=== PATIENT | male | born 1980 | race Two or more races ===

== ENCOUNTER → 2021-04-11 10:05 | Outpatient (BNVA) | payer MEDICAID, SELFPAY | PROVIDERS: PCP Internal Medicine; Referring Provider Internal Medicine; Visit Provider Surgery | DX: L82.1 Other seborrheic keratosis (principal) | CPT/HCPCS: 99202 ==

== ENCOUNTER 2021-06-22 08:40 | Outpatient (REF) | payer MEDICAID, SELFPAY ==
[2021-06-22 08:47] VITALS: BP 122/79; PULSE 87; RESP 16; TEMP 37.4; O2SAT 100
[2021-06-22 08:48] VITALS: BMI 24.2
--- NOTE | 2021-06-22 10:05 | P.OP_ITS ---
Operative Note Operative Note Date of Service: 06/22/21 Narrative: Preoperative diagnosis: Skin lesion left lower quadrant abdomen Postoperative diagnosis: Same Procedure: Excision of skin lesion left lower quadrant abdomen Surgeon: Ty Ma MD Receiving Distribution Station Operator: No physician Anesthesia: Local Indications for procedure: 41-year-old male patient with a raised black skin lesion in the left lower quadrant which is irritated by his clothing which rubs against the lesion and causes bleeding on occasion. Operative findings: 1 cm raised black lesion in the left lower quadrant, path pending Specimen: Skin lesion left lower quadrant abdomen Estimated blood loss: 2 cc Complications: None Procedure details: Patient was brought to the minor surgery suite placed in a supine position. Surgical consent was confirmed and the site of surgery confirmed by the patient in the left lower quadrant. Skin was prepped with Betadine and draped in a sterile fashion. Local was infiltrated around the lesion an elliptical incision made to excise the lesion completely. The lesion measures approximately 1 cm in diameter. Lesion was passed off the table and sent to pathology for further examination. After assuring adequate hemostasis, the skin was closed using interrupted 4-0 nylon sutures. Sterile dressings consisting of 2 x 2 gauze and Tegaderm were then applied. The patient tolerated the procedure well. He was discharged to home in stable condition.
== END 2021-06-22 08:41 | disposition home or self-care (01) ==
LOC: HO.MS 08:40
PROVIDERS: PCP Internal Medicine; Visit Provider Surgery
PROC: (CPT 11401; principal; 2021-06-22 09:30)
DX: L43.8 Other lichen planus (principal)
CPT/HCPCS: 11401; 88305

== ENCOUNTER → 2021-06-30 10:54 | Outpatient (BNVA) | payer MEDICAID, SELFPAY | PROVIDERS: PCP Internal Medicine; Referring Provider Internal Medicine; Visit Provider Surgery | DX: Z48.817 Encounter for surgical aftercare following surgery on the skin and subcutaneous tissue (principal); Z87.2 Personal history of diseases of the skin and subcutaneous tissue | CPT/HCPCS: 99212 ==

== ENCOUNTER 2022-01-17 10:43 | Outpatient (REF) | payer MEDICAID, SELFPAY ==
[2022-01-17 13:53] LABS: MANUAL DIFF FLAG NO
[2022-01-17 13:58] LABS: Basophils Absolute Auto 0.1 X10*3/uL (0.0-0.2); Eosinophils Absolute Auto 0.1 X10*3/uL (0.0-0.4); Eosinophils Percent Auto 1.7 % (0-4); Hematocrit 43.1 % (42.0-52.0); Hemoglobin 14.4 g/dl (14.0-18.0); Imm Gran Abs Auto 0.02 X10*3/uL (0.00-0.03); Imm Gran Pct Auto 0.2 % (0.0-0.4); Lymphocytes Absolute Auto 2.6 X10*3/uL (1.2-4.9); Lymphocytes Percent Auto 31.9 % (20-40); Mean Corpuscular HGB Conc 33.4 g/dl (31.0-36.0); Mean Corpuscular Hemoglobin 29.3 pg (27.0-33.0); Mean Corpuscular Volume 87.6 fL (80.0-98.0); Mean Platelet Volume 11.8 fL (9.4-12.4); Monocytes Absolute Auto 0.7 X10*3/uL (0.1-1.2); Monocytes Percent Auto 8.1 % (2-11); Neutrophils Absolute Auto 4.6 x10*3/uL (2.0-8.3); Neutrophils Percent Auto 57.1 % (45-73); Platelet Count 293 X10*3/uL (160-400); Red Blood Count 4.92 X10*6/uL (4.60-5.80); Red Cell Distribution Width 13.3 % (11.0-16.0)
[2022-01-17 14:19] LABS: Alanine Aminotransferase 17 U/L (0-40); Albumin Level 4.5 g/dL (3.5-5.0); Alkaline Phosphatase 45 U/L (39-117); Anion Gap 14 (12-20); Aspartate Amino Transferase 18 U/L (5-37); Bilirubin Total 0.3 mg/dL (0.0-1.0); Blood Urea Nitrogen 12 mg/dL (9-16); Calcium 9.9 mg/dL (8.4-10.2); Carbon Dioxide 28 mmol/L (22-29); Chloride 103 mmol/L (96-108); Cholesterol 248 mg/dL; Estimated Glomerular Filt Rate > 60; Glucose Fasting 84 mg/dL (60-99); HDL Cholesterol 48 mg/dL; LDL Cholesterol Calculated 184 mg/dl; Sodium 140 mmol/L (135-145); Total Protein 7.4 g/dL (6.5-8.0); Triglycerides 84 mg/dL
[2022-01-17 14:34] LABS: Syphilis Screen Nonreactive (Nonreactive)
[2022-01-17 15:28] LABS: CT PCR NOT DETECTED (Not Detect.); NG PCR NOT DETECTED (Not Detect.)
[2022-01-18 06:30] LABS: HIV AB/AG Nonreactive (Nonreactive); HIV Num 1 0.09 S/CO (0.00-0.99)
== END 2022-01-17 10:44 | disposition home or self-care (01) ==
LOC: HO.10HDL 10:43
PROVIDERS: Visit Provider Internal Medicine
DX: E78.00 Pure hypercholesterolemia, unspecified (principal); R10.2 Pelvic and perineal pain; Z11.3 Encounter for screening for infections with a predominantly sexual mode of transmission
CPT/HCPCS: 80053; 80061; 85025; 86780; 87389; 87491; 87591

== ENCOUNTER 2023-05-09 09:37 | Outpatient (REF) | payer MEDICAID, SELFPAY ==
[2023-05-09 10:54] LABS: MANUAL DIFF FLAG NO
[2023-05-09 11:06] LABS: Basophils Absolute Auto 0.1 X10*3/uL (0.0-0.2); Basophils Percent Auto 1.1 % (0-2); Eosinophils Absolute Auto 0.2 X10*3/uL (0.0-0.4); Eosinophils Percent Auto 2.9 % (0-4); Hematocrit 41.4 % (42.0-52.0); Hemoglobin 13.7 g/dl (14.0-18.0); Imm Gran Abs Auto 0.02 X10*3/uL (0.00-0.03); Imm Gran Pct Auto 0.2 % (0.0-0.4); Lymphocytes Absolute Auto 2.8 X10*3/uL (1.2-4.9); Lymphocytes Percent Auto 33.4 % (20-40); Mean Corpuscular HGB Conc 33.1 g/dl (31.0-36.0); Mean Corpuscular Hemoglobin 28.8 pg (27.0-33.0); Mean Platelet Volume 11.3 fL (9.4-12.4); Monocytes Absolute Auto 0.6 X10*3/uL (0.1-1.2); Monocytes Percent Auto 7.6 % (2-11); Neutrophils Absolute Auto 4.5 x10*3/uL (2.0-8.3); Neutrophils Percent Auto 54.8 % (45-73); Platelet Count 264 X10*3/uL (160-400); Red Blood Count 4.76 X10*6/uL (4.60-5.80); Red Cell Distribution Width 13.8 % (11.0-16.0); White Blood Count 8.3 X10*3/uL (4.8-10.8)
[2023-05-09 11:29] LABS: Alanine Aminotransferase 21 U/L (0-40); Albumin Level 4.2 g/dL (3.5-5.0); Alkaline Phosphatase 45 U/L (39-117); Anion Gap 11 (12-20); Aspartate Amino Transferase 18 U/L (5-37); Bilirubin Total 0.2 mg/dL (0.0-1.0); Blood Urea Nitrogen 15 mg/dL (9-16); Calcium 9.3 mg/dL (8.4-10.2); Carbon Dioxide 27 mmol/L (22-29); Chloride 106 mmol/L (96-108); Cholesterol 216 mg/dL (<200); Estimated Glomerular Filt Rate > 60; Glucose Random 102 mg/dL (60-115); HDL Cholesterol 49 mg/dL (>40); LDL Cholesterol Calculated 155 mg/dL (<100); Potassium 4.3 mmol/L (3.3-5.1); Sodium 140 mmol/L (135-145); Total Protein 7.3 g/dL (6.5-8.0); Triglycerides 62 mg/dL (<150)
== END 2023-05-09 09:38 | disposition home or self-care (01) ==
LOC: HO.10HDL 09:37
PROVIDERS: Visit Provider Internal Medicine
DX: Z00.00 Encounter for general adult medical examination without abnormal findings (principal); E78.00 Pure hypercholesterolemia, unspecified; F12.90 Cannabis use, unspecified, uncomplicated; F17.201 Nicotine dependence, unspecified, in remission
CPT/HCPCS: 36415; 80053; 80061; 85025

== ENCOUNTER 2024-02-24 08:58 | Outpatient (REF) | payer MEDICAID, SELFPAY ==
[2024-02-24 12:00] LABS: Alanine Aminotransferase 29 U/L (0-40); Albumin Level 4.3 g/dL (3.5-5.0); Alkaline Phosphatase 42 U/L (39-117); Anion Gap 10 (12-20); Aspartate Amino Transferase 22 U/L (5-37); Bilirubin Total 0.3 mg/dL (0.0-1.0); Blood Urea Nitrogen 13 mg/dL (9-16); Calcium 9.2 mg/dL (8.4-10.2); Carbon Dioxide 28 mmol/L (22-29); Chloride 105 mmol/L (96-108); Cholesterol 256 mg/dL (<200); Estimated Glomerular Filt Rate > 60; Glucose Random 100 mg/dL (60-115); HDL Cholesterol 53 mg/dL (>40); LDL Cholesterol Calculated 188 mg/dL (<100); Potassium 4.5 mmol/L (3.3-5.1); Sodium 138 mmol/L (135-145); Total Protein 7.3 g/dL (6.5-8.0); Triglycerides 77 mg/dL (<150)
== END 2024-02-24 08:59 | disposition home or self-care (01) ==
LOC: HO.10HDL 08:58
PROVIDERS: Visit Provider Internal Medicine
DX: Z00.00 Encounter for general adult medical examination without abnormal findings (principal); E78.00 Pure hypercholesterolemia, unspecified; F12.10 Cannabis abuse, uncomplicated; G60.8 Other hereditary and idiopathic neuropathies
CPT/HCPCS: 36415; 80053; 80061

== ENCOUNTER 2024-08-24 09:48 | Outpatient (REF) | payer MEDICAID, SELFPAY ==
--- OUTSIDE RECORDS SUMMARY | 2024-08-24 10:45 | XMS_ITS ---
Author Organization [facility] Address [address] [place] [phone] Care Team Providers Care Full Time Staff Interpreter Name Role Phone Sonya Schumacher Primary Care Provider Unavailab hernan Hickey Jr, Efrain Montalvo REASON FOR VISIT Patient presents today for a colon screening Encounters Encounter Location Date Provider Diagnosis [facility] [address] [place] [phone] 06/11/2024 Efrain Hickey Jr Plan Of Treatment No Information Progress Notes * CLARIBEL CLEMONSODOB:[birth year] (44 yo M)Acc No.[id number]:06/11/2024 Progress Notes Patient:?JOSUÉ CLEMONS Provider:?Efrain Hickey MD :1980???Age:44 Y???Sex:Male Hernandez e:06/11/2024 Address:[address] [place], [place] [id number] Pcp:Sonya Schumacher Subjective: * Chief Complaints: * ???1. Patient presents today for a colon screening. * Medical History:? Objective: * Vitals:? Assessment: Plan: * Treatment: * * The named appointment provid er may or may not be the originator of this progress note, and it is not deemed complete until electronically signed by the appointment provider. Sign off status: Pending * Provider:?Efrain Hickey MD Date:?0 06/11/2024 Generated for Sylvia koch/Armando/eTransmitting on:?08/24/2024 10:44 AM EDT
[2024-08-24 13:52] LABS: Alanine Aminotransferase 31 U/L (0-40); Albumin Level 4.5 g/dL (3.5-5.0); Alkaline Phosphatase 47 U/L (39-117); Anion Gap 13 (12-20); Aspartate Amino Transferase 23 U/L (5-37); Bilirubin Total 0.3 mg/dL (0.0-1.0); Blood Urea Nitrogen 14 mg/dL (9-16); Calcium 9.6 mg/dL (8.4-10.2); Carbon Dioxide 27 mmol/L (22-29); Chloride 105 mmol/L (96-108); Cholesterol 261 mg/dL (<200); Estimated Glomerular Filt Rate > 60; Glucose Random 102 mg/dL (60-115); HDL Cholesterol 54 mg/dL (>40); LDL Cholesterol Calculated 187 mg/dL (<100); Potassium 4.1 mmol/L (3.3-5.1); Sodium 141 mmol/L (135-145); Total Protein 7.4 g/dL (6.5-8.0); Triglycerides 104 mg/dL (<150)
== END 2024-08-24 09:49 | disposition home or self-care (01) ==
LOC: HO.10HDL 09:48
PROVIDERS: Visit Provider Internal Medicine
DX: E78.00 Pure hypercholesterolemia, unspecified (principal); G60.8 Other hereditary and idiopathic neuropathies; Z68.24 Body mass index [BMI] 24.0-24.9, adult
CPT/HCPCS: 36415; 80053; 80061

== ENCOUNTER 2024-10-27 10:22 | Outpatient (REF) | payer MEDICAID, SELFPAY ==
--- OUTSIDE RECORDS SUMMARY | 2024-06-11 10:35 | XMS_ITS ---
Author Organization [facility] Address [address] [place] [phone] Care Team Providers Care Deck Mechanic Name Role Phone Sonya Schumacher Primary Care Provider Unavailab hernan Hickey Jr, Efrain Unavailable [phone] REASON FOR VISIT Patient presents today for a colon screening Encounters Encounter Location Date Provider Diagnosis [facility] [address] [place] [phone] 06/11/2024 Efrain Hickey Jr Plan Of Treatment No Information Progress Notes * CLARIBEL CLEMONSODOB:[birth year] (44 yo M)Acc No.[id number]:06/11/2024 Progress Notes Patient: JOSUÉ ROBISON Provider: Amos Hickey MD :1980 A ge:44 Y S ex:Male Date:06/11/2024 Address:[address] [place], [place] [id number] Pcp:Sonya Schumacher Subjective: * Chief Complaints: * 1 . Patient presents today for a colon screening. * Medical History: Objective: * Vitals: Assessment: Plan: * Treatment: * * The named appointment provid er may or may not be the originator of this progress note, and it is not deemed complete until electronically signed by the appointment provider. Sign off status: Pending * Provider: Amos Hickey MD Date: 0 06/11/2024 Generated for Sylvia koch/Armando/Adelinaitting on: 0 10/27/2024 11:40 AM EDT
[2024-10-27 11:09] LABS: Alanine Aminotransferase 25 U/L (0-40); Albumin Level 4.6 g/dL (3.5-5.0); Alkaline Phosphatase 44 U/L (39-117); Anion Gap 14 (12-20); Aspartate Amino Transferase 24 U/L (5-37); Blood Urea Nitrogen 15 mg/dL (9-16); Calcium 9.6 mg/dL (8.4-10.2); Carbon Dioxide 27 mmol/L (22-29); Chloride 103 mmol/L (96-108); Cholesterol 217 mg/dL (<200); Estimated Glomerular Filt Rate > 60; HDL Cholesterol 49 mg/dL (>40); Potassium 4.2 mmol/L (3.3-5.1); Sodium 140 mmol/L (135-145); Total Protein 7.3 g/dL (6.5-8.0); Triglycerides 53 mg/dL (<150)
--- OUTSIDE RECORDS SUMMARY | 2024-10-27 11:41 | XMS_ITS | Clinical Summary ---
Author Organization [address] Address [address] [place] [phone] Phone Care Team Providers Care Fleet Administrator Name Role Phone Unavailable Primary Care Provider Unavailabl e Social History Tobacco Use Types Packs/Day Years Used Date Smoking Tobacco: Never Assessed Sex and Gender Information Value Date Recorded Sex Assigned at Not on file Legal Sex Male 3:47 PM EST Gender Identity Not on file Sexual Orientation Not on file Plan of Treatment Health Maintenance Due Date Last Done Comments DTaP,Tdap,and Td Vaccines (1 - Tdap) 1997 Hepatitis B Vaccines (1 of 3 - 19+ 3-dose series) 1997 COVID-19 Vaccine (2023-2 5 season) 2023 Depression Screening 03/11/2024 Cholesterol Screening (Lipid Panel) 10/27/2024 Colorectal Cancer Screening: Colonoscopy 10/27/2024 HIV Screening 10/27/2024 Hepatitis C Screening 10/27/2024 Social Influencers of Health Screening 10/27/2024 Influenza Vaccine (#1) 2024 HIB Vaccines Aged Out No longer eligi ble based on patient's age to complete this topic HPV Vaccines Aged Out No longer eligi ble based on patient's age to complete this topic Hepatitis A Vaccines Aged Out No long er eligible based on patient's age to complete this topic IPV Vaccines Aged Out No longer eligi ble based on patient's age to complete this topic MMR Vaccines Aged Out No longer eligi ble based on patient's age to complete this topic Meningococcal ACWY Vaccine Aged Out N o longer eligible based on patient's age to complete this topic Meningococcal B Vaccine Aged Out No l onger eligible based on patient's age to complete this topic Pneumococcal Vaccine: Pediat rics (0 to 5 Years) and At-Risk Patients (6 to 49 Years) Aged Out No longer eligible b ased on patient's age to complete this topic RSV Immunization Patients Un kay 20 months Aged Out No longer eligible b ased on patient's age to complete this topic Varicella Vaccines Aged Out No longer eligible based on patient's age to complete this topic
--- OUTSIDE RECORDS SUMMARY | 2024-10-27 11:41 | XMS_ITS | Clinical Summary ---
Author Organization [facility] Address [address] [place] [address] Care Team Providers Care Court Crier Name Role Phone Unavailable Primary Care Provider Unavailabl e Source Comments PLEASE NOTE, if this patient is a minor, it may be UNLAWFUL to discuss sensitive information that is contained in these records (such as FAMILY PLANNING, MENTAL HEALTH or SUBSTANCE ABUSE) with the minor patient's parent or other person without the patient's specific authorization.[facility] Allergies No known active allergies Medications omeprazole (PRILOSEC OTC) 20 mg EC tabletIndication s:GERD (gastroesophagea l reflux disease) Take 1 Tab by mouth 2 (two) times daily before a meal. Swallow whole. Do not crush or chew. 60 Tab 3 10/14/2012 Active ibuprofen (ADVIL,MOTRIN) 600 mg tabletIndication s:Sprain and strain of lumbosacral joint/ligament,S prain and strain of unspecified site of shoulder and upper arm Take 1 Tab by mouth 4 (four) times daily as needed for pain. 60 Tab 1 12/01/2012 Active Active Problems Problem Noted Date Diagnosed Date Chronic LBP 12/26/2012 Sprain and strain of lumbosacral joint/ligament 12/01/2012 Immunizations Immunization Administration Dates Next Due INFLUENZA, SEASONAL, INJECTABLE, PRESERVATIVE FR EE 12/26/2012 Social History Tobacco Use Types Packs/Day Years Used Date Smoking Tobacco: Light Smoker Alcohol Use Standard Drinks/Week Comments No 0 (1 standard drink = 0.6 oz pur e alcohol) Sex and Gender Information Value Date Recorded Sex Assigned at Not on file Legal Sex Male 7:12 AM PDT Gender Identity Not on file Sexual Orientation Not on file Last Filed Vital Signs Vital Sign Reading Time Taken Comments Blood Pressure 114/68 12/26/2012 11:13 AM EDT Pulse 60 12/26/2012 11:13 AM EDT Temperature 36.6 C (97.8 F) 12/26/2012 11:13 AM EDT Respiratory Rate 14 12/26/2012 11:13 AM EDT Oxygen Saturation 99% 12/01/2012 2:04 PM EDT Inhaled Oxygen Concentration - - Weight 57.2 kg (126 lb) 12/26/2012 11:13 AM EDT Height 152.4 cm (5') 12/26/2012 11:13 AM EDT Body Mass Index 24.61 12/26/2012 11:13 AM EDT Plan of Treatment Not on file Insurance [facility] Member Subscriber Plan / Payer (Ef fective 2012-Present) Name:Sesar Bahena Relation to Subscriber:Self Name:Sesar Bahena Payer ID:[id number] Group ID:[id number] Type:Medicaid Address: [facility] [id number] [place] [address]
== END 2024-10-27 10:23 | disposition home or self-care (01) ==
LOC: HO.10HDL 10:22
PROVIDERS: Visit Provider Internal Medicine
DX: I10 Essential (primary) hypertension (principal); E78.00 Pure hypercholesterolemia, unspecified; F12.10 Cannabis abuse, uncomplicated; I47.19 Other supraventricular tachycardia
CPT/HCPCS: 36415; 80053; 80061